=== PATIENT | female | born 1960 | race Caucasian/White ===

== ENCOUNTER 2021-10-23 09:05 | Outpatient (CLI) | payer OTHER ==
[~2021-10-23 09:05] MED LIST: ATENOLOL25 MG
== END 2021-10-23 09:10 | disposition home or self-care (01) ==
LOC: SONOGRAMA 09:05
PROVIDERS: ATTEND Obstetrics & Gynecology Gynecology
DX: N95.0 Postmenopausal bleeding (principal); R10.2 Pelvic and perineal pain; N84.0 Polyp of corpus uteri

== ENCOUNTER 2021-11-17 01:12 | Emergency (ER) | payer OTHER ==
[~2021-11-17] VITALS: Ht 157.5 cm; Wt 56.7 kg
[2021-11-17] MEDS ORDERED: FLONASE ALLERG9.9 ML NASAL (03:54)
[2021-11-17] MEDS ORDERED: AMOX-CLAV 875-1 EACH PO (03:54)
[2021-11-17] MEDS ORDERED: NAPROXEN375 MG PO (03:56)
== END 2021-11-17 05:08 | disposition home or self-care (01) ==
LOC: ER 01:12
DX: J32.9 Chronic sinusitis, unspecified (principal); I10 Essential (primary) hypertension; E03.9 Hypothyroidism, unspecified

== ENCOUNTER 2022-03-25 15:52 | Emergency (ER) | payer OTHER ==
[~2022-03-25] VITALS: Ht 160 cm; Wt 58.1 kg
[~2022-03-25 15:52] MED LIST changes: +AMOX-CLAV 875-1 EACH PO; +FLONASE ALLERG9.9 ML NASAL; +NAPROXEN375 MG PO
== END 2022-03-25 22:28 | disposition home or self-care (01) ==
LOC: ER 15:52
DX: R51.9 Headache, unspecified (principal)